=== PATIENT | male | born 1970 | race Caucasian/White ===

== ENCOUNTER → 2021-01-16 | Outpatient (CLI) | payer OTHER ==
--- NOTE | 2021-01-16 11:43 | NM ---
EXAMINATION TYPE: NM stress cardiolite complete DATE OF EXAM: 01/16/2021 COMPARISON: NONE HISTORY: Chest pain TECHNIQUE: After the intravenous administration of 9.6 mCi Tc 99m Sestamibi - Rest images obtained 5 5 minutes post injection. The patient exercised using a VIDHI protocol and 1 minute prior to peak e xercise was injected with 25.5 mCi Tc 99m Sestamibi - Stress images obtained 20 minutes post injectio n. FINDINGS: Targeted heart rate was achieved during performance of the study. Review of stress and rest SPECT bandar ges demonstrates no distinct perfusion abnormality. Gated analysis shows normal wall motion with an estimated left ventricular ejection fraction of 50 %. IMPRESSION: No scintigraphic evidence for reversible ischemia
--- NOTE | 2021-01-16 15:35 | EST ---
EXERCISE STRESS AGE: 50 SEX: M HT: 5'8" WT: 185 lbs. PROTOCOL: Marc STAGE: 4 DURATION OF EXERCISE: 12:00 HEART RATE REST: 81 BLOOD PRESSURE REST: 148/102 MAXIMUM HEART RATE ACHIEVED: 154 MAXIMUM BLOOD PRESSURE: 216/80 85% MPHR: 145 100% MPHR: 170 METS: 12.1 INDICATIONS: Abnormal EKG. CLINICAL INFORMATION: Baseline rhythm is sinus mechanism, rate of 81, normal intervals, poor R-wave progression. Baseline blood pressure 149/102 mmHg. Patient exercised on Marc protocol for 12 minutes, reaching a peak rate of 154 beats per minute, which is equal to 91% maximum predicted heart rate. Peak blood pressure 211/84 mmHg. Test was terminated secondary to fatigue. There was no chest pain. Electrocardiograph monitoring revealed no evidence of diagnostic ischemic ST deviation. CONCLUSION: 1. Good exercise tolerance with no chest discomfort. 2. Normal echocardiograph response to exercise with no evidence of exercise-induced ischemia. MMODL / IJN: [id number] /
== END | disposition home or self-care (01) ==
LOC: RADNMMAIN 07:49
PROVIDERS: ATTEND Family Medicine
DX: R94.31 Abnormal electrocardiogram [ECG] [EKG] (principal)
CPT/HCPCS: 93017; 78452; A9500

== ENCOUNTER 2021-02-17 10:23 | Day surgery (SDC) | payer OTHER ==
[2021-02-13 10:01] VITALS: BMI 28.8
[~2021-02-17 10:23] MED LIST: LACTATED RINGERS 1,000 ML IV SCH
[2021-02-17 10:57] VITALS: TEMP 98.8
[2021-02-17] MEDS ORDERED: LIDOCAINE 1% (10MG/ML) FOR IV START INTRADERMA ONE (10:58)
[2021-02-17] MEDS ORDERED: PROPOFOL 10 MG/ML 20 ML VIAL IV ONE (11:10)
--- NOTE | 2021-02-17 11:16 | P.GSHP ---
History of Present Illness H&P Date: 02/17/21 Chief Complaint: Colon cancer screening 50-year-old male here today for colonoscopy. He has not had 1 previously. No bowel complaints. No family history of colon cancer. Past Medical History Past Medical History: Hypertension History of Any Multi-Drug Resistant Organisms: None Reported Additional Past Surgical History / Comment(s): METAL PLATE ANKLE AND WRIST () Past Anesthesia/Blood Transfusion Reactions: No Reported Reaction Past Psychological History: No Psychological Hx Reported Smoking Status: Never smoker Past Alcohol Use History: Occasional Past Drug Use History: None Reported - Past Family History Father Family Medical History: Cancer Additional Family Medical History / Comment(s): ANAL CANCER Medications and Allergies Home Medications Medication Instructions Recorded Confirmed Type Lisinopril 1 tab PO DAILY 02/13/21 02/17/21 History Allergies Allergy/AdvReac Type Severity Reaction Status Date / Time No Known Allergies Allergy Verified 02/17/21 10:36 Surgical - Exam Vital Signs Temp Pulse Resp BP Pulse Ox 98.8 F 72 16 127/84 96 02/17/21 10:54 02/17/21 10:54 02/17/21 10:54 02/17/21 10:54 02/17/21 10:54 Physical exam: General: Well-developed, well-nourished HEENT: Normocephalic, sclerae nonicteric Abdomen: Nontender, nondistended Extremities: No edema Neuro: Alert and oriented Assessment and Plan (1) Colon cancer screening Narrative/Plan: Will proceed with colonoscopy at this time Current Visit: Yes Status: Acute Code(s): Z12.11 - ENCOUNTER FOR SCREENING FOR MALIGNANT NEOPLASM OF COLON SNOMED Code(s): 145999088
--- NOTE | 2021-02-17 11:33 | P.PCN ---
Date of Procedure: 02/17/21 Procedure(s) Performed: PREOPERATIVE DIAGNOSIS: Colon cancer screening POSTOPERATIVE DIAGNOSIS: Sigmoid colon polyp PROCEDURE: Colonoscopy ANESTHESIA: MAC SURGEON: Mp Carmen M.D. SPECIMENS: Sigmoid colon polyp ENDOSCOPIC PROCEDURE: The patient was placed on the endoscopy table in the left decubitus position. The Olympus colonoscope was inserted into the anus and passed under direct visualization to the base of the cecum. The appendiceal orifice was visualized. From that point the scope was slowly withdrawn inspecting all surfaces carefully. There were no neoplastic inflammatory or polypoid lesions throughout the cecum, ascending, transverse, and descending colon. In the sigmoid there was a small polyp noted. This was removed using the snare with cautery technique. The remainder of the sigmoid and rectum was normal. There was no visible diverticulosis noted. Digital rectal examination was normal. The patient was taken to the recovery room in stable condition per anesthesia guidelines. RECOMMENDATIONS: Resume diet. Await biopsy results. Follow-up colonoscopy 5-10 years.
[2021-02-17 12:05] VITALS: BP 121/78; PULSE 78; RESP 18
== END 2021-02-17 12:23 | disposition home or self-care (01) ==
LOC: ORWHC2ENDO 10:23
PROVIDERS: ATTEND Surgery
DX: Z12.11 Encounter for screening for malignant neoplasm of colon (principal); D12.5 Benign neoplasm of sigmoid colon; I10 Essential (primary) hypertension; Z98.890 Other specified postprocedural states; Z80.0 Family history of malignant neoplasm of digestive organs; Z79.899 Other long term (current) drug therapy
CPT/HCPCS: 88305; 45385; J2704

== ENCOUNTER 2024-03-20 09:34 | Day surgery (SDC) | payer OTHER ==
[2024-03-15 13:15] VITALS: BMI 29.6
[~2024-03-20 09:34] MED LIST changes: +LIDOCAINE 1% (10MG/ML) FOR IV START INTRADERMA PRN
[2024-03-20 10:26] VITALS: TEMP 98
[2024-03-20] MEDS: IV FLUID CONTINUATION 1,000 ML IV ONE (10:36)
[2024-03-20] MEDS ORDERED: PROPOFOL 10 MG/ML 20 ML VIAL IV ONE (11:17)
--- NOTE | 2024-03-20 11:24 | P.GSHP ---
History of Present Illness H&P Date: 03/20/24 Chief Complaint: History of colon polyps 53-year-old male here for colonoscopy. Last colonoscopy 3 years ago. Patient was found to have a small tubular adenoma at the time. Family history of anal cancer in his father. Past Medical History Past Medical History: Hyperlipidemia, Hypertension History of Any Multi-Drug Resistant Organisms: None Reported Additional Past Surgical History / Comment(s): Colonoscopy, R wrist and R leg surgery. Past Anesthesia/Blood Transfusion Reactions: No Reported Reaction Smoking Status: Never smoker - Past Family History Father Family Medical History: Cancer Medications and Allergies Home Medications Medication Instructions Recorded Confirmed Type Atorvastatin [Lipitor] 10 mg PO DAILY 03/20/24 03/20/24 History lisinopriL [Prinivil] 10 mg PO DAILY 03/20/24 03/20/24 History Allergies Allergy/AdvReac Type Severity Reaction Status Date / Time No Known Allergies Allergy Verified 03/20/24 10:19 Surgical - Exam Vital Signs Temp Pulse Resp BP Pulse Ox 98.0 F 68 17 142/87 94 L 03/20/24 10:24 03/20/24 10:24 03/20/24 10:24 03/20/24 10:24 03/20/24 10:24 Physical exam: General: Well-developed, well-nourished HEENT: Normocephalic, sclerae nonicteric Abdomen: Nontender, nondistended Extremities: No edema Neuro: Alert and oriented Assessment and Plan (1) Colon polyp Narrative/Plan: Will proceed with colonoscopy at this time. Current Visit: Yes Status: Acute Code(s): K63.5 - POLYP OF COLON SNOMED Code(s): 99488234
--- NOTE | 2024-03-20 11:36 | P.PCN ---
Date of Procedure: 03/20/24 Procedure(s) Performed: PREOPERATIVE DIAGNOSIS: Screening with history of polyps POSTOPERATIVE DIAGNOSIS: Normal exam PROCEDURE: Colonoscopy ANESTHESIA: MAC SURGEON: Mp Carmen M.D. SPECIMENS: None ENDOSCOPIC PROCEDURE: The patient was placed on the endoscopy table in the left decubitus position. The Olympus colonoscope was inserted into the anus and passed under direct visualization to the base of the cecum. The appendiceal orifice was visualized. From that point the scope was slowly withdrawn inspecting all surfaces carefully. There were no neoplastic inflammatory or polypoid lesions throughout the cecum, ascending, transverse, descending, sigmoid and rectum. There was no visible diverticulosis noted. Digital rectal examination was normal. The patient was taken to the recovery room in stable condition per anesthesia guidelines. RECOMMENDATIONS: Resume diet. Repeat colonoscopy 5 to 7 years.
[2024-03-20 12:00] VITALS: BP 145/89; PULSE 75; RESP 14
== END 2024-03-20 12:15 | disposition home or self-care (01) ==
LOC: ORWHC2ENDO 09:34
PROVIDERS: ATTEND Surgery
DX: Z12.11 Encounter for screening for malignant neoplasm of colon (principal); I10 Essential (primary) hypertension; E78.5 Hyperlipidemia, unspecified; Z79.899 Other long term (current) drug therapy; Z86.0101 Personal history of adenomatous and serrated colon polyps; Z80.0 Family history of malignant neoplasm of digestive organs
CPT/HCPCS: 45378; J2704